=== PATIENT | male | born 1950 | race Caucasian/White ===

== ENCOUNTER → 2016-05-15 09:33 | Outpatient (CLI) | payer OTHER ==
--- NOTE | 2016-05-24 12:24 | EC ---
PATIENT:ELYSE HUNT DATE OF SERVICE: 05/15/16 SEX: M MEDICAL RECORD: [id number] DATE OF : 50 LOCATION:[facility] AGE OF PATIENT: 66 ADMISSION DATE: 05/15/16 REFERRING PHYSICIAN: INTERPRETING PHYSICIAN: EVE RIOS M.D. ECHOCARDIOGRAM REPORT ECHO CHARGES 4 ECHO COMPLETE CLINICAL DIAGNOSIS: CAD ECHOCARDIOGRAPHIC MEASUREMENTS (adult normal given) AC root (d.<3.7cm) 2.7 LV Septum d (<1.2 cm> 1.1 Valve Excursion 1.4 LV Septum (systole) 1.8 Left Atria (s.<4.0cm> 3.2 LVPW d(<1.2cm) 1.1 RV (d.<2.3cm) 2.1 LVPW (sytole) 1.8 LV diastole(<5.6CM) 5.1 MV E-F(>70mm/sec) LV systole 2.8 LVOT Diameter 1.9 MV exc.(>10mm) Est.ejection fraction (50-75%) Pericardial Effusion N DOPPLER: LVIT A 51.0 E 76.0 LA RVSP 48.5 LVOT 84.0 AOP1/2T Asc. Ao 106 RVOT 39.0 RA PA 66.0 AV Gradient Peak 4.5 AV Mean 2.1 AV Area 2.2 MV Gradient Peak 2.5 MV Mean 1.1 MV Area COMMENTS: Tie Worker: Karl GALEASOE Environmental Management Specialist:1 Dr. Boone TAPE# PACS DATE OF SERVICE: 05/15/2016 Echocardiogram Report REFERRING PHYSICIAN: Selvin Ibanez. INDICATION: Coronary artery disease. DESCRIPTION: Left ventricle appears normal size. There is mild left ventricular dysfunction noted. His ejection fraction is in the order of 40%. ECHOCARDIOGRAM REPORT [id number] ELYSE HUNT Mitral valve is structurally normal. There is trivial regurgitation seen. Left atrium is normal size. The aortic valve is trileaflet. There is no stenosis or regurgitation seen. Right ventricle is normal size and function. Tricuspid valve is structurally normal. There is mild regurgitation seen. Right ventricular systolic pressure is elevated at 48 mmHg. There is no pericardial effusion noted. IMPRESSION: 1. Mild left ventricular dysfunction with ejection fraction of 40%. 2. Mild tricuspid regurgitation with elevated pulmonary pressures. TRANSINT:[id number] Voice Confirmation ID: [id number] DOCUMENT ID: [id number] EVE RIOS M.D. at 1224 CC: [id number] DICTATION DATE: 05/15/16 1629 CAST IRON DIPPER: 05/16/16 0100 DEP CLI 05/15/16 [place] [id number] [place] [id number]
== END | disposition home or self-care (01) ==
LOC: D.ECHO 09:33
DX: I25.10 Atherosclerotic heart disease of native coronary artery without angina pectoris (principal)